=== PATIENT | female | born 1945 | race Caucasian/White ===

== ENCOUNTER → 2017-03-30 | Outpatient (CLI) | payer MEDICARE ==
[~2017-03-30] MED LIST: ALBU8.5H3 PO; ASPI-496 PO; CITRUCEL PO; ESOM40CA PO; FLUT1AER PO; HYDR12.58 PO; METO50TA82 PO; PITA4TAB2 PO
== END | disposition home or self-care (01) ==
LOC: ROC 12:27
PROVIDERS: ATTEND Radiology Radiation Oncology
DX: C50.311 Malignant neoplasm of lower-inner quadrant of right female breast (principal); Z92.3 Personal history of irradiation
CPT/HCPCS: 99213; G0463

== ENCOUNTER → 2017-04-02 | Outpatient (CLI) | payer MEDICARE | END | disposition home or self-care (01) | LOC: CFH 10:03 | PROVIDERS: ATTEND Radiology Radiation Oncology | DX: C50.911 Malignant neoplasm of unspecified site of right female breast (principal); I10 Essential (primary) hypertension ==

== ENCOUNTER → 2017-04-17 | Outpatient (CLI) | payer MEDICARE ==
[~2017-04-17] MED LIST changes: +OMNIPAQUE 350 MG/ML, 75ML BOTTLE ONE
== END | disposition home or self-care (01) ==
LOC: CFH 12:48
PROVIDERS: ATTEND Radiology Radiation Oncology
DX: M47.894 Other spondylosis, thoracic region (principal); C50.311 Malignant neoplasm of lower-inner quadrant of right female breast; R92.2 Inconclusive mammogram; R23.4 Changes in skin texture; K76.9 Liver disease, unspecified
CPT/HCPCS: 71260; Q9967

== ENCOUNTER → 2017-06-04 | Outpatient (CLI) | payer MEDICARE ==
[~2017-06-04] MED LIST changes: -ALBU8.5H3 PO; +ALBU8.5H8 PO; -OMNIPAQUE 350 MG/ML, 75ML BOTTLE ONE
== END | disposition home or self-care (01) ==
LOC: CFH 11:57
PROVIDERS: ATTEND Radiology Radiation Oncology
DX: N64.4 Mastodynia (principal); Z85.3 Personal history of malignant neoplasm of breast; Z90.11 Acquired absence of right breast and nipple
CPT/HCPCS: 76641; 77065; G0204; G0279

== ENCOUNTER → 2017-07-18 | Outpatient (CLI) | payer MEDICARE | END | disposition home or self-care (01) | LOC: ROC 12:48 | PROVIDERS: ATTEND Radiology Radiation Oncology | DX: C50.911 Malignant neoplasm of unspecified site of right female breast (principal) | CPT/HCPCS: 99212; G0463 ==

== ENCOUNTER → 2017-10-10 | Outpatient (CLI) | payer MEDICARE | END | disposition home or self-care (01) | LOC: CFH 08:56 | PROVIDERS: ATTEND Internal Medicine Hematology & Oncology | DX: Z13.820 Encounter for screening for osteoporosis (principal); C50.311 Malignant neoplasm of lower-inner quadrant of right female breast; N95.9 Unspecified menopausal and perimenopausal disorder | CPT/HCPCS: 77080 ==

== ENCOUNTER → 2017-10-16 | Outpatient (CLI) | payer MEDICARE ==
[2017-10-16 15:19] LABS: CREATININE 0.98 mg/dL (0.55-1.02)
== END | disposition home or self-care (01) ==
LOC: RAD 14:26
PROVIDERS: ATTEND Internal Medicine Cardiovascular Disease
DX: R07.9 Chest pain, unspecified (principal); K76.89 Other specified diseases of liver; I10 Essential (primary) hypertension
CPT/HCPCS: 36415; 71275; 82565

== ENCOUNTER → 2018-06-06 | Outpatient (CLI) | payer MEDICARE ==
[~2018-06-06] MED LIST changes: +DILT60CA PO; +EXEM25TA2 PO; +RANI150C PO
== END | disposition home or self-care (01) ==
LOC: CFH 09:18
PROVIDERS: ATTEND Internal Medicine Hematology & Oncology
DX: Z12.31 Encounter for screening mammogram for malignant neoplasm of breast (principal); Z85.3 Personal history of malignant neoplasm of breast
CPT/HCPCS: 77067

== ENCOUNTER → 2019-03-05 | Outpatient (CLI) | payer MEDICARE ==
[~2019-03-05] MED LIST changes: -HYDR12.58 PO; +HYDROCHLOROTH12.5 MG PO
== END | disposition home or self-care (01) ==
LOC: ROC 08:05
PROVIDERS: ATTEND Radiology Radiation Oncology
DX: Z08 Encounter for follow-up examination after completed treatment for malignant neoplasm (principal); Z85.3 Personal history of malignant neoplasm of breast; Z79.899 Other long term (current) drug therapy; Z88.0 Allergy status to penicillin
CPT/HCPCS: 99212; G0463

== ENCOUNTER → 2020-06-18 | Outpatient (CLI) | payer MEDICARE | END | disposition home or self-care (01) | LOC: CFH 09:34 | PROVIDERS: ATTEND Internal Medicine Hematology & Oncology | DX: Z12.31 Encounter for screening mammogram for malignant neoplasm of breast (principal); C50.311 Malignant neoplasm of lower-inner quadrant of right female breast; R92.1 Mammographic calcification found on diagnostic imaging of breast | CPT/HCPCS: 76641; 77063; 77067 ==